=== PATIENT | male | born 2000 | race Hispanic/Latino ===

== ENCOUNTER 2022-06-03 03:57 | Emergency (ER) | payer OTHER, SELFPAY ==
[2022-06-03] MEDS ORDERED: ALPRAZolam 0.5 MG TAB ONE (04:39)
== END 2022-06-03 04:55 | disposition home or self-care (01) ==
LOC: NAV ERS 03:57
DX: F41.9 Anxiety disorder, unspecified (principal); R00.1 Bradycardia, unspecified; F17.290 Nicotine dependence, other tobacco product, uncomplicated

== ENCOUNTER 2023-01-04 15:02 | Emergency (ER) | payer BC, SELFPAY ==
[2023-01-04] MEDS ORDERED: Ibuprofen 200 MG TAB ONE (15:21)
== END 2023-01-04 15:29 | disposition home or self-care (01) ==
LOC: NAV ERS 15:02
DX: T63.2X1A Toxic effect of venom of scorpion, accidental (unintentional), initial encounter (principal); Z87.891 Personal history of nicotine dependence
CPT/HCPCS: 99283

== ENCOUNTER 2023-03-10 07:37 | Emergency (ER) | payer BC, SELFPAY ==
[2023-03-10] MEDS ORDERED: Ketorolac Tromethamine 60 MG/2 ML VIAL ONE (08:18)
[2023-03-10] MEDS ORDERED: Dexamethasone 20 MG/5 ML VIAL ONE (08:18)
== END 2023-03-10 09:06 | disposition home or self-care (01) ==
LOC: NAV ERS 07:37
DX: J02.9 Acute pharyngitis, unspecified (principal); Z20.822 Contact with and (suspected) exposure to COVID-19; Z87.891 Personal history of nicotine dependence
CPT/HCPCS: 87081; 87430; 87804; 96372; 99284; J1100; J1885; U0003; U0005

== ENCOUNTER 2023-03-12 07:22 | Emergency (ER) | payer SELFPAY ==
[2023-03-12] MEDS ORDERED: Sodium Chloride 0.9% 2,000 ML ONE (08:09)
[2023-03-12] MEDS ORDERED: Acetaminophen 500 MG TAB ONE (08:09)
[2023-03-12 08:17] LABS: MDiff Complete? YES; Manual Diff?? YES; Mean Corpuscular Volume 87.7 fl (78.0-98.0); Mean Platelet Volume 9.6 fL (7.4-10.4); Platelet Count 118 10x3/uL (130-400); Red Blood Cell (RBC) Count 4.85 mill/uL (4.70-6.10); White Blood Cell (WBC) Count 2.7 10x3/uL (4.8-10.8)
[2023-03-12 08:28] LABS: ALT (SGPT) 27 U/L (8-55); AST (SGOT) 31 U/L (5-34); Albumin 4.1 g/dL (3.5-5.0); Alkaline Phosphatase 54 U/L (40-110); Anion Gap 14 mmol/L (10-20); BUN (Urea Nitrogen) 10 mg/dL (8.9-20.6); Band 3 % (5-11); Bilirubin, Total 0.6 mg/dL (0.2-1.2); Calc. Creatinine Clearance 0 mL/min (70-130); Calcium 8.6 mg/dL (7.8-10.44); Carbon Dioxide 24 mmol/L (22-29); Chloride 104 mmol/L (98-107); Estimated GFR 110; Globulin 2.9 g/dL (2.4-3.5); Glucose 107 mg/dL (70-105); Lymphocytes 27 % (21-51); Monocytes 10 % (0-10); Neutrophil 56 % (42-75); Potassium 3.7 mmol/L (3.5-5.1); Reactive Lymphocytes 4 % (0-10); Sodium 138 mmol/L (136-145)
[2023-03-12 08:29] LABS: Large Platelets SLIGHT (None Seen); Platelet Morphology Comment Appears Decreased
[2023-03-12 08:52] LABS: Bilirubin Negative (Negative); Blood, Urine Negative (Negative); Clarity Clear (Clear); Glucose, Urine (Dipstick) Negative (Negative); Ketone, Urine Negative (Negative); Leukocyte Negative (Negative); Nitrite Negative (Negative); Protein, Urine (Dipstick) Negative (Neg-Trace); Specific Gravity, Urine 1.015 (1.005-1.030); Urobilinogen 0.2 mg/dL (Less than 2)
[2023-03-12 11:11] LABS: MONO NEGATIVE CONTROL ZONE White (Negative) (White); MONO POSITIVE CONTROL Pink Line (Positive) (PINK/RED); Mononucleosis NEGATIVE (NEGATIVE)
== END 2023-03-12 10:35 | disposition home or self-care (01) ==
LOC: NAV ERS 07:22
DX: B34.9 Viral infection, unspecified (principal); Z20.822 Contact with and (suspected) exposure to COVID-19; Z87.891 Personal history of nicotine dependence
CPT/HCPCS: 36415; 70450; 71046; 80053; 81003; 83605; 85025; 86308; 87040; 87081; 87430; 87804; J7050; U0003; U0005